=== PATIENT | female | born 1965 | race Caucasian/White ===

== ENCOUNTER → 2016-06-23 | Outpatient (CLI) | payer BC | LOC: KOH-I 16:12 | DX: M79.672 Pain in left foot (principal); M79.605 Pain in left leg | CPT/HCPCS: 73590; 73630 ==

== ENCOUNTER → 2016-08-15 | Outpatient (CLI) | payer BC | LOC: KOH-I 12:20 | DX: M66.272 Spontaneous rupture of extensor tendons, left ankle and foot (principal); M94.272 Chondromalacia, left ankle and joints of left foot; S93.492A Sprain of other ligament of left ankle, initial encounter; M25.472 Effusion, left ankle | CPT/HCPCS: 73721 ==